=== PATIENT | female | born 1985 ===

== ENCOUNTER 2017-07-16 12:10 | Inpatient (IN) ==
[2017-07-16] MEDS ORDERED: CITRIC ACID/SODIUM CITRATE 30 ML UDCUP PO ONE (13:10)
[2017-07-16] MEDS ORDERED: FAMOTIDINE 20 MG/2 ML VIAL IV ONE (13:10)
[2017-07-16] MEDS ORDERED: ceFAZolin 2,000 MG in PREMIX 1 EACH IV ONE (13:10)
[2017-07-16] MEDS ORDERED: OXYTOCIN/LR 30 UNIT/1,000 ML BAG IV ONE (13:14)
[2017-07-16] MEDS ORDERED: OXYTOCIN 10 UNIT/ML VIAL IM ONE (13:14)
[2017-07-16] MEDS ORDERED: METOCLOPRAMIDE 10 MG/2 ML VIAL IV ONE (13:15)
[2017-07-16] MEDS ORDERED: LACTATED RINGERS 1,000 ML IV SCH (13:30)
[2017-07-16 13:40] LABS: Basophils % 0.2 % (0.0-0.8); Eosinophils # 0.1 10*3/uL (0.0-0.87); Eosinophils % 0.6 % (0.00-10.9); Hematocrit 28.7 VOL% (35.7-47.0); Hemoglobin 9.3 GM/DL (12.0-16.0); Immature Granulocytes % 0.4 %; Immature Granulocytes Absolute 0.05 #; Lymphocytes # 1.7 10*3/uL (1.4-4.0); Lymphocytes % 14.7 % (21.3-54.2); Mean Corpuscular HGB Conc 32.4 GM/DL (32-36); Mean Corpuscular Hemoglobin 24 PG (27-34); Mean Corpuscular Volume 72.8 FL (87-102); Mean Platelet Volume 10.3 FL (9.6-12.0); Monocytes # 0.7 10*3/uL (0.11-0.8); Monocytes % 6.2 % (1.7-12.7); Neutrophils % 77.9 % (38.7-73.9); Platelet Count 330 T/CUMM (130-400); Red Blood Count 3.94 MC/CUMM (3.8-5.5); Red Cell Distribution Width 15.1 % (9.3-17.3); White Blood Count 11.6 T/CUMM (4-12)
[2017-07-16] MEDS: LACTATED RINGERS 1,000 ML IV SCH (13:50)
[2017-07-16 13:53] LABS: Apearance,Urine CLEAR (Clear); Bilirubin,Urine Negative (Negative); Blood, Urine Negative (Negative); Glucose,Urine (UA) Negative (Negative); Ketones,Urine Negative (Negative); Mucus,Urine Few /LPF (Occasional); Nitrite,Urine Negative (Negative); Protein,Urine 30 MG/DL; RBC,Urine 3 /HPF (0-4); Squamous Epithelial Cell,Urine Occasional /HPF (0-10); Urine Color Yellow (Yellow); Urine Specific Gravity 1.026 (1.001-1.035); WBC,Urine 1 /HPF (0-6)
[2017-07-16 14:15] LABS: Albumin 2.1 G/DL (3.4-5.0); Bilirubin,Total 0.4 MG/DL (0.2-1.0); Calcium 8.2 MG/DL (8.5-10.1); Osmolality,Calculated 277.5 MOS/KG (273-304); Potassium 3.9 MMOL/L (3.5-5.1); Total Protein 6.8 G/DL (6.4-8.3)
[2017-07-16 15:26] LABS: Cord Venous Blood HCO3 22.1 MMOL/L; Cord Venous Blood PCO2 39.2 MMHG
[2017-07-16] MEDS ORDERED: PROPOFOL 200 MG/20 ML VIAL IV ONE (15:28)
[2017-07-16] MEDS ORDERED: ePHEDrine 50 MG/ML AMP ONE (15:28)
[2017-07-16] MEDS ORDERED: MORPHINE 10 MG/10 ML VIAL ONE (15:28)
[2017-07-16] MEDS ORDERED: fentaNYL 100 MCG/2 ML VIAL ONE (15:28)
[2017-07-16] MEDS ORDERED: ONDANSETRON 4 MG/2 ML VIAL ONE (15:29)
[2017-07-16] MEDS ORDERED: ACETAMINOPHEN 325 MG TABLET PO PRN (17:50)
[2017-07-16] MEDS ORDERED: RHO(D) IMMUNE GLOBULIN 300 MCG SYRINGE IM ONE (17:50)
[2017-07-16] MEDS ORDERED: OXYTOCIN/LR 20 UNIT/1,000 ML BAG IV ONE (17:50)
[2017-07-16] MEDS ORDERED: IBUPROFEN 800 MG TABLET PO PRN (17:50)
[2017-07-16] MEDS ORDERED: hydrOXYzine HCL 25 MG/1 ML VIAL IM PRN (17:53)
[2017-07-16] MEDS ORDERED: diphenhydrAMINE 50 MG/1 ML VIAL IV PRN (17:53)
[2017-07-16] MEDS: HYDROmorphone 2 MG/1 ML VIAL IV PRN (17:55)
[2017-07-16] MEDS: ONDANSETRON 4 MG/2 ML VIAL IV PRN (18:20)
[2017-07-16] MEDS: DOCUSATE SODIUM 100 MG CAPSULE PO SCH (21:00)
[2017-07-16 22:24] LABS: Basophils % 0.2 % (0.0-0.8); Hematocrit 26.8 VOL% (35.7-47.0); Hemoglobin 8.6 GM/DL (12.0-16.0); Immature Granulocytes % 0.4 %; Immature Granulocytes Absolute 0.08 #; Lymphocytes # 0.9 10*3/uL (1.4-4.0); Lymphocytes % 4.5 % (21.3-54.2); Mean Corpuscular HGB Conc 32.1 GM/DL (32-36); Mean Corpuscular Hemoglobin 23 PG (27-34); Mean Corpuscular Volume 72.8 FL (87-102); Mean Platelet Volume 9.8 FL (9.6-12.0); Monocytes % 5.1 % (1.7-12.7); Neutrophils # 17.3 10*3/uL (1.4-7.4); Neutrophils % 89.8 % (38.7-73.9); Platelet Count 314 T/CUMM (130-400); Red Blood Count 3.68 MC/CUMM (3.8-5.5); Red Cell Distribution Width 14.8 % (9.3-17.3); White Blood Count 19.2 T/CUMM (4-12)
[2017-07-16 23:02] LABS: Band Neutrophils 4 % (0-10); Lymphocytes 3 % (20-55); Segmented Neutrophils 90 % (50-85)
[2017-07-16 23:04] LABS: Platelet Estimate Normal; Total Cells Counted 100
[2017-07-17] MEDS: LACTATED RINGERS 1,000 ML IV SCH (01:15)
[2017-07-17] MEDS: ONDANSETRON 4 MG/2 ML VIAL IV PRN (02:21)
[2017-07-17] MEDS: HYDROmorphone 2 MG/1 ML VIAL IV PRN (02:24)
[2017-07-17 04:29] LABS: Basophils % 0.1 % (0.0-0.8); Hematocrit 24.6 VOL% (35.7-47.0); Hemoglobin 7.9 GM/DL (12.0-16.0); Immature Granulocytes % 0.5 %; Immature Granulocytes Absolute 0.08 #; Lymphocytes # 1.5 10*3/uL (1.4-4.0); Mean Corpuscular HGB Conc 32.1 GM/DL (32-36); Mean Corpuscular Hemoglobin 24 PG (27-34); Mean Corpuscular Volume 73.2 FL (87-102); Mean Platelet Volume 10.6 FL (9.6-12.0); Monocytes # 1.2 10*3/uL (0.11-0.8); Monocytes % 7.2 % (1.7-12.7); Neutrophils # 13.7 10*3/uL (1.4-7.4); Neutrophils % 83.2 % (38.7-73.9); Platelet Count 303 T/CUMM (130-400); Red Blood Count 3.36 MC/CUMM (3.8-5.5); White Blood Count 16.4 T/CUMM (4-12)
[2017-07-17] MEDS ORDERED: ALUMINUM/MAGNES/SIMETH MAX STR 30 ML UDCUP PO PRN (06:24)
[2017-07-17] MEDS: ceFAZolin 1,000 MG in SYRINGE 1 EACH IV SCH ×2 (06:35)
[2017-07-17] MEDS: DOCUSATE SODIUM 100 MG CAPSULE PO SCH ×2 (08:38→20:07)
[2017-07-17] MEDS: MULTIVITAMIN (PRENATAL) TABLET PO SCH (08:38)
[2017-07-17] MEDS: FERROUS SULFATE 325 MG TABLET PO SCH ×3 (08:38→20:07)
[2017-07-17] MEDS: MAGNESIUM HYDROXIDE SUSP 30 ML UDCUP PO PRN ×2 (08:38→19:57)
[2017-07-17] MEDS ORDERED: SODIUM CHLORIDE 0.9% 1,000 ML IV PRN (10:47)
[2017-07-17 17:10] LABS: Hematocrit 29.4 VOL% (35.7-47.0)
[2017-07-17 17:12] LABS: Hemoglobin 9.6 GM/DL (12.0-16.0)
[2017-07-17] MEDS: SIMETHICONE CHEW 80 MG TABLET PO PRN (19:57)
[2017-07-18] MEDS ORDERED: INFLUENZA VIRUS VACCINE 0.5 ML SYRINGE IM ONE (07:00)
[2017-07-18 07:13] LABS: Hematocrit 27.2 VOL% (35.7-47.0)
[2017-07-18] MEDS: MAGNESIUM HYDROXIDE SUSP 30 ML UDCUP PO PRN (09:08)
[2017-07-18] MEDS: DOCUSATE SODIUM 100 MG CAPSULE PO SCH ×2 (09:08→20:01)
[2017-07-18] MEDS: MULTIVITAMIN (PRENATAL) TABLET PO SCH (09:08)
[2017-07-18] MEDS: FERROUS SULFATE 325 MG TABLET PO SCH ×3 (09:08→20:00)
[2017-07-18] MEDS ORDERED: MEPERIDINE 50 MG/1 ML VIAL IV ONE (10:02)
[2017-07-18] MEDS ORDERED: BISACODYL 10 MG SUPP RECTAL PRN (15:45)
[2017-07-19] MEDS: FERROUS SULFATE 325 MG TABLET PO SCH (08:02)
[2017-07-19] MEDS: DOCUSATE SODIUM 100 MG CAPSULE PO SCH (08:02)
[2017-07-19] MEDS: MULTIVITAMIN (PRENATAL) TABLET PO SCH (08:02)
[2017-07-19] MEDS: SIMETHICONE CHEW 80 MG TABLET PO PRN (13:30)
[2017-07-19 14:38] VITALS: BP 127/81
== END 2017-07-19 14:15 | disposition home or self-care (01) | DRG 540 ==
LOC: N.LDOUT 12:10 → N.LD 12:12 → N.OB 17:56
PROVIDERS: ADMIT Obstetrics & Gynecology; ATTEND Obstetrics & Gynecology